=== PATIENT | male | born 1985 | race Caucasian/White ===

== ENCOUNTER 2022-12-22 11:12 | Outpatient (CLI) | payer BC | END 2022-12-22 11:13 | disposition home or self-care (01) | LOC: BICRAD 11:12 | PROVIDERS: ATTEND Nurse Practitioner Family | DX: R07.81 Pleurodynia (principal) | CPT/HCPCS: 71046 ==

== ENCOUNTER 2023-02-03 08:34 | Outpatient (CLI) | payer BC | END 2023-02-03 08:35 | disposition home or self-care (01) | LOC: SCSCT 08:34 | PROVIDERS: ATTEND Family Medicine | DX: S29.9XXA Unspecified injury of thorax, initial encounter (principal); R07.81 Pleurodynia | CPT/HCPCS: 71250 ==